=== PATIENT | female | born 1955 | race Caucasian/White ===

== ENCOUNTER 2020-04-28 11:33 | Observation (INO) | payer MEDICARE ==
[2020-04-28] VITALS (7 sets, daily range): BP systolic 108–140; BP diastolic 54–76; Ht 167.6 cm; Wt 67.7 kg
[~2020-04-28] VITALS: Ht 167.6 cm; Wt 67.7 kg
--- NOTE | ~2020-04-28 | HEMODYNAMI ---
PATIENT:CLIVE MARTINEZ MEDICAL RECORD: [id number] : 51 LOCATION:[facility] D.4 ADMISSION DATE: 04/28/20 Generatedon:04/29/202010:25 Patient name: CLIVE MARTINEZ Patient #: [id number] SSN: [id number] : 1955 Date of study: 04/29/2020 Page: Of Hemodynamic Procedure Report Patient Data Patient Demographics Procedure consent was obtained First Name: CLIVE Gender: Female Last Name: JUAN : 1955 Patient #: [id number] Age: 65 year(s) Race: SSN: [id number] Additional ID: [id number] Contact details [address]: [address] [place] [address] State: [place] City: [place] Zip code: [address] Past Medical History Allergies Allergen Reaction Date Comments Reported Other allergy 04/29/2020 PCN Admission Admission Data Admission Date: 04/28/2020 Admission Time: 16:21 Arrival Date: 04/29/2020 Arrival Time: 0:00 Admit Source: Emergency Insurance Payor: Medicare department [facility] #: [id number] Room #: D.2114 Height (in.): 66 BSA: 1.77 (m2) Height (cm.): 167.64 BMI: 24.1 (kg/m2) Weight (lbs.): 149.3 Weight (kg.): 67.72 Lab Results Lab Result Date: 04/29/2020 Lab Result Time: 0:00 Biochemistry Name Units Result Min Max BUN mg/dl 17 --(---*)-- 7 18 CK-MB ng/ml 1 --(-*--)-- 0 3.6 Creatinine mg/dl 1 --(--*-)-- 0.6 1.3 eGFR ml/min 58 *-(----)-- 90 120 NONAFRICAN Troponin l ng/ml 0.017 --(-*--)-- 0 0.06 CBC Name Units Result Min Max Hematocrit % 41.3 -*(----)-- 42 54 Hemoglobin g/dl 13.4 -*(----)-- 13.5 17.5 Procedure Procedure Types Cath Procedure Diagnostic Procedure [facility] w/Coronaries Procedure Description Procedure Date Procedure Date: 04/29/2020 Procedure Start Time: 10:12 Procedure End Time: 10:19 Procedure Staff Name Function Jarrett Herrera MD Performing Physician Ananya Collier RT Monitor Carmen Reno RT Scrub Beau Lawrence RN Nurse Procedure Data Cath Procedure Fluoroscopy Diagnostic fluoroscopy Total fluoroscopy Time: 1 time: 1 min min Diagnostic fluoroscopy Total fluoroscopy dose: 149 dose: 149 mGy mGy Contrast Material Contrast Material Type Amount (ml) Isovue 300 46 Entry Location Entry Primary Successful Side Size Upsize Upsize Entry Closure Succes sful Closure Location (Fr) 1 (Fr) 2 (Fr) Remarks Device Remarks Femoral Right 5 Fr Exoseal artery Estimated blood loss: 5 ml Diagnostic catheters Device Type Used For End Catheter Placement MULTIPACK JL 4.0 5Fr Left Coronary catheter Angiography MULTIPACK 3DRC 5Fr Right Coronary catheter Angiography MULTIPACK Pigtail 5 Fr LV Angiography catheter Procedure Complications No complications Procedure Medications Medication Administration Route Dosage Oxygen etCO2 Nasal cannula 2 l/min Lidocaine 2% added to field 20 Heparin Flush Bag added to field 2 bags (1000units/500ml NS) 0.9% NaCl I.V. 100 ml/hr Versed I.V. 2 mg Fentanyl I.V. 50 mcg Fentanyl I.V. 50 mcg Versed I.V. 1 mg Versed I.V. 1 mg Hemodynamics Rest BSA: 1.77 (m2) HGB: 13.4 (g/dl) O2 Consumption: Estimated: 160.33 (ml/min) O2 Co nsumption indexed: Estimated:90.58 (ml/min/m) Heart Rate: 64 (bpm) Pressure Samples Time Site Value (mmHg) Purpose Heart Use Rate(bpm) 10:16 LV 102/8,16 Snapshot 65 Gradients Valve Time Site Site Mean SEP/DFP Peak To Heart Use 1 2 (mmHg) (sec/min) Peak Rate (mmHg) (bpm) Aortic 10:17 LV AO 65 Snapshots Pre Cath Intra NCS Post Cath Vital Signs Time Heart Resp SPO2 etCO2 NIBP (mmHg) Rhythm Pain Sedation Rate (ipm) (%) (mmHg) Status Level (bpm) 9:59:49 60 14 99 0 128/79(109) NSR 0 (11) 10(A) , No pain 10:03:57 67 11 96 36 119/82(92) NSR 0 (11) 10(A) , No pain 10:08:06 55 14 96 39.1 115/70(82) NSR 0 (11) 10(A) , No pain 10:12:19 56 12 96 39.1 115/65(87) NSR 0 (11) 9(A) , No pain 10:16:31 65 14 96 38.3 118/66(74) NSR 0 (11) 9(A) , No pain 10:22:57 67 21 97 40.6 119/72(89) NSR 0 (11) 10(A) , No pain Medications Time Medication Route Dose Verified Delivered Reason Notes Eff ectiveness by by 10:03:32 Oxygen etCO2 2 Jarrett Buffie used for Nasal l/min [facility] Raul Lawrence director information security cannula 10:03:41 Lidocaine 2% added 20ml Jarrett Jarrett for local to vial [facility] anesthetic field MD KEYES 10:04:00 Heparin Flush added 2 Jarrett Jarrett used for Bag to bags [facility] procedure (1000units/500ml field MD KEYES NS) 10:04:09 0.9% NaCl I.V. 100 Jarrett Buffie Per ml/hr St Raul Lawrence RN physician 10:08:04 Versed I.V. 2 mg Jarrett Buffie for [facility] Raul Lawrence RN sedation 10:08:10 Fentanyl I.V. 50 [address] for mcg [address] Raul Lawrence RN sedation 10:13:13 Versed I.V. 1 mg Jarrett Buffie for SharonRaul Lawrence RN sedation 10:13:39 Fentanyl I.V. 50 Jarrett Buffie for mcg SharonRaul Lawrence RN sedation 10:17:44 Versed I.V. 1 mg Jarrett Buffie for SharonRaul Lawrence RN sedation Procedure Log Time Note 9:28:50 Informed consent obtained and on chart 9:29:10 Diagnostic Cath Status : Urgent 9:29:26 Arrival Date: 04/29/2020 12:00:00 AM 9:29:28 Admit Source: Emergency department 9:29:32 Insurance Payor : Medicare 9:29:59 Patient Height : 66 inches 9:30:04 Patient Weight : 149.3 lbs 9:30:15 ACC Patient presents with Non-STEMI CCS Anginal Class 2--Slight limitation of ordinary activity. 9:30:19 Procedure Status Urgent Heart Cath (IP). 9:30:21 Time tracking: Regular hours (M-F 7:00 - 5:00) 9:30:26 Plan of Care:Hemodynamics will remain stable., Cardiac rhythm will remain stable., Comfort level will be maintained., Respiratory function will remain adequate., Patient/ family verbilizes understanding of procedure., Procedure tolerated without complication., Recovers from procedure without complications.. 9:30:29 Pre-procedure instructions explained to patient. 9:30:30 Pre-op teaching completed and patient verbalized understanding. 9:30:31 Family unavailable. 9:30:33 Patient NPO since Midnight. 9:30:44 Patient allergic to Other allergyPCN 9:43:15 Lab Result : Troponin l 0.017 ng/ml 9:43:15 Lab Result : Hemoglobin 13.4 g/dl 9:43:15 Lab Result : eGFR NONAFRICAN 58 ml/min 9:43:15 Lab Result : BUN 17 mg/dl 9:43:15 Lab Result : Creatinine 1 mg/dl 9:43:15 Lab Result : CK-MB 1 ng/ml 9:43:15 Lab Result : Hematocrit 41.3 % 9:45:10 H&P Date Dictated: 04/28/2020 Within 30 days and on chart.. 9:45:20 Lab results completed and on chart. 9:45:24 Stress Test: no; N/A ? 9:45:26 Alarms reviewed by R. N. 9:45:27 Sharps counted by scrub and verified by R.N. 9:46:50 Beau Lawrence RN sent for patient. Start room use. 9:58:30 Patient received from Med II to CCL 1 Alert and oriented. Tansferred to table in Supine position. 9:58:31 Warm blankets applied, and giorgio hugger turned on for patient comfort. 9:58:32 Correct patient and procedure confirmed by team. 9:58:32 ECG and BP/O2 sat monitors applied to patient. 9:58:33 Full Disclosure recording started 9:58:37 Vital chart was started 9:58:39 Baseline sample Acquired. 9:58:42 Rhythm: sinus rhythm 10:00:33 Attempt to call spouse Melvin made, left message due to no answer. 10:03:32 Oxygen 2 l/min etCO2 Nasal cannula was administered by Beau Lawrence RN; used for procedure; Verbal order read back and verified. 10:03:41 Lidocaine 2% 20ml vial added to field was administered by Jarrett Herrera MD; for local anesthetic; Verbal order read back and verified. 10:04:00 Heparin Flush Bag (1000units/500ml NS) 2 bags added to field was administered by Jarrett Herrera MD; used for procedure; Verbal order read back and verified. 10:04:09 0.9% NaCl 100 ml/hr I.V. was administered by Baeu Lawrence RN; Per physician; Verbal order read back and verified. 10:04:21 Baseline sample Acquired. 10:04:32 Is the patient allergic to Iodine/contrast media? No. 10:04:33 Was the patient premedicated? Yes 10:04:34 Is patient on blood thinner?No 10:04:35 Patient diabetic? No. 10:04:38 Previous problem with sedation/anesthesia? No ? 10:04:39 Snore? Yes 10:04:41 Sleep apnea? No 10:04:41 Deviated septum? No 10:04:42 Opens mouth fully? Yes 10:04:43 Sticks out tongue? Yes 10:04:44 Airway obstruction? No ? 10:04:48 Dentures? No ? 10:04:54 Pre procedure: right dorsailis pedis pulse 2+ Normal; easily identifiable; not easily obliterated 10:04:56 Pre procedure: left dorsailis pedis pulse 2+ Normal; easily identifiable; not easily obliterated 10:04:58 Patient pain scale 0/10 ?. 10:05:05 IV patent on arrival in right wrist with 0.9% NaCl at [facility]. 10:05:11 Right groin area was prepped with chlora-prep and draped in sterile fashion 10:06:02 Physician arrived 10:06:02 --------ALL STOP TIME OUT------ 10:06:03 Final Timeout: patient, procedure, and site verified with staff and physician. All members of the team are in agreement. 10:06:04 Right groin site verified by team. 10:06:07 Fire Safety Assessment: A--An alcohol-based skin anteseptic being used preoperatively., C--Open oxygen or nitrous oxide is being used., D--An ESU, laser, or fiber-optic light is being used. 10:06:10 Physical assessment completed. ASA score P 2 - A patient with mild systemic disease as per Jarrett Herrera MD. 10:06:40 3a) 45-59 Moderately reduced kidney function. 10:07:34 Maximum allowable contrast dose (3.7 X eGFR X 0.75)160 ml. 10:07:38 Sedation plan: IV Moderate Sedation Medication:Versed, Fentanyl 10:07:49 Use device set Femoral Dx 10:07:53 ACIST Syringe (40381) opened to sterile field. 10:07:54 Bag Decanter (2002S) opened to sterile field. 10:07:54 Medline Cath Pack ([id number]) opened to sterile field. 10:07:55 ACIST Hand Control (41271) opened to sterile field. 10:07:56 ACIST Manifold (51226) opened to sterile field. 10:07:57 DIAGNOSTIC Multipack 5Fr catheter set (QJ2978) opened to sterile field. 10:07:57 Tegaderm 4 x 4 (1626W) opened to sterile field. 10:07:58 SHEATH 5FR [place] (BVK675) opened to sterile field. 10:07:59 EMERALD Guide Wire (157-523) opened to sterile field. 10:08:04 Versed 2 mg I.V. was administered by Beau Lawrence RN; for sedation; Verbal order read back and verified. 10:08:10 Fentanyl 50 mcg I.V. was administered by Beau Lawrence RN; for sedation; Verbal order read back and verified. 10:12:25 Procedure started. 10:12:35 Local anesthetic to right femoral artery with Lidocaine 2% by Jarrett Herrera MD.INITIAL ACCESS ONLY 10:12:44 A 5 Fr sheath was inserted into the Right Femoral artery 10:13:13 Versed 1 mg I.V. was administered by Beau Lawrence RN; for sedation; Verbal order read back and verified. 10:13:37 A MULTIPACK JL 4.0 5Fr catheter was advanced over the wire and used for Left Coronary Angiography. 10:13:39 Fentanyl 50 mcg I.V. was administered by Beau Lawrence RN; for sedation; Verbal order read back and verified. 10:13:46 LCA angiography performed. 10:13:48 Injector settings: Ml/sec: 3, Volume: 6, 10:14:22 Catheter removed. 10:14:28 A MULTIPACK 3DRC 5Fr catheter was advanced over the wire and used for Right Coronary Angiography. 10:15:25 RCA angiography performed. 10:15:28 Injector settings: Ml/sec: 3, Volume: 6, 10:15:35 Zero performed for pressure channel P1 10:15:56 Catheter removed. 10:15:59 A MULTIPACK Pigtail 5 Fr catheter was advanced over the wire and used for LV Angiography. 10:16:46 LV hemodynamics recorded. 10:17:11 LV gram done using AMOR 10:17:14 Injector settings: Ml/sec: 5, Volume: 15, 10:17:17 EF : 55 % 10:17:20 Catheter removed. 10:17:22 EXOSEAL 5Fr (EX500) opened to sterile field. 10:17:34 Sheath removed intact; hemostasis achieved with Exoseal to the Right Femoral artery. 10:17:35 Procedure ended.(Physican Out) 10:17:44 Versed 1 mg I.V. was administered by Beau Lawrence RN; for sedation; Verbal order read back and verified. 10:17:53 Fluoroscopy time 01.00 minutes. 10:17:57 Fluoroscopy dose: 149 mGy 10:17:57 Flurop Dose total: 149 10:18:02 Dose Area Product 7108 mGy/cm. 10:18:05 Contrast amount:Isovue 300 46ml. 10:18:08 Maximum allowable dose exceeded? No. 10:18:09 Sharps counted by scrub and verified by R.N. 10:18:10 Insertion/operative site no bleeding no hematoma. 10:18:12 Post-op/insertion site Right Femoral artery dressed using a 4 x 4 and Tegaderm. 10:18:13 Post Procedure Pulses reassessed and unchanged 10:18:16 Post procedure rhythm: unchanged. 10:18:18 Estimated blood loss: 5 ml 10:18:22 Post procedure instruction explained to patient.Patient verbalizes understanding. 10:18:22 Patient needs reinforcement of post procedure teaching. 10:18:49 Procedure and supply charges have been captured, reviewed, submitted and are correct. 10:18:54 Procedure Complication : No complications 10:18:56 Vital chart was stopped 10:18:58 [facility] Findings: mild to moderate CAD (<70%) 10:19:01 Operative report dictated upon procedure completion. 10:19:01 See physician's report for complete and final results. 10:19:04 Report given to [facility]. 10:19:07 Patient transfered to [facility] with Stretcher. 10:19:10 Procedure ended. 10:19:10 Full Disclosure recording stopped 10:19:15 End room use (Document Last) Device Usage Item Name Manufacture Quantity Catalog Hospital Part Current Minimal L ot# / Number Charge Number Stock Stock Serial# Code ACIST Acist 1 64962 422674 806557 [id number] 20 Syringe Medical (38815) Systems Inc Bag Microtek 1 2001S 144553 82558 595834 5 Decanter Medical Inc. () Medline Medline 1 [id number] 325007 94046 322850 5 Cath Pack ([id number]) ACIST Hand Acist 1 06419 438010 561596 815602 5 Control Medical (00742) Systems Inc ACIST Acist 1 73221 936705 916986 234158 5 Manifold Medical (71007) Systems Inc DIAGNOSTIC Cardinal 1 WC0036 233396 43537 575392 30 Multipack Health 5Fr catheter set (OG1201) Tegaderm 4 3M 1 1626W 011965 123310 485000 5 x 4 (1626W) SHEATH 5FR Terumo 1 [id number] 852246 058658 579247 5 [place] (LWM490) EMERALD Cardinal 1 502-455 025019 618784 856761 5 Guide Wire Health (502-206) MULTIPACK Cardinal 1 920809 5 JL 4.0 5Fr Health catheter MULTIPACK Cardinal 1 252623 5 3DRC 5Fr Health catheter MULTIPACK Cardinal 1 462349 5 Pigtail 5 Health Fr catheter EXOSEAL 5Fr Cardinal 1 EX500 396283 637666 070304 10 (EX500) Health Signature Audit [place] Stage Time Signature Unsigned Intra-Procedure 04/29/2020 Ananya Collier 10:20:58 AM RT(R) Intra-Procedure 04/29/2020 Beau Lawrence RN 10:21:20 AM Intra-Procedure 04/29/2020 Jarrett Soto 10:25:19 AM Raul KEYES [address] [place] [address]
--- NOTE | ~2020-04-28 | EC ---
PATIENT:CLIVE MARTINEZ DATE OF SERVICE: 04/28/20 SEX: F MEDICAL RECORD: [id number] DATE OF : [birth year] LOCATION:D.M2 D.211 AGE OF PATIENT: 65 ADMISSION DATE: 04/28/20 REFERRING PHYSICIAN: INTERPRETING PHYSICIAN: APOLLO LANE MD ECHOCARDIOGRAM REPORT ECHO CHARGES 4 ECHO COMPLETE Date: 04/29/20 CLINICAL DIAGNOSIS: Chest Pain , Shortness of Breath ECHOCARDIOGRAPHIC MEASUREMENTS (adult normal given) AC root (d.<3.7cm) 3.0 cm LV Septum d (<1.2 cm> 1.0 cm Valve Excursion cm LV Septum (systole) 1.0 cm Left Atria (s.<4.0cm> 3.0 cm LVPW d(<1.2cm) 0.9 cm RV (d.<2.3cm) 3.5 cm LVPW (sytole) 1.2 cm LV diastole(<5.6CM) 4.0 cm MV E-F(>70mm/sec) cm LV systole 2.9 cm LVOT Diameter 2.0 cm MV exc.(>10mm) cm Est.ejection fraction (50-75%) 55 % DOPPLER: LVIT cm/sec A 68 cm/sec E 88 cm/sec LA cm/sec RVSP 30 mmHg LVOT 115 cm/sec AOP1/2T m/s Asc. Ao 152 cm/sec RVOT cm/sec RA cm/sec PA cm/sec AV Gradient Peak 9.2 mmHg AV Mean 4.7 mmHg AV Area 2.2 cm MV Gradient Peak 3.4 mmHg MV Mean 1.4 mmHg MV Area cm COMMENTS: Testing Analyst: Property Claims Manager: Elke Xie TAPE# pacs Pericardial Effusion N DATE OF SERVICE: Adequate 2D, color flow imaging, spectral Doppler and M-Mode No LVH. LV internal dimension is normal. Wall motion is normal. EF is greater than or equal to 55%. Aortic valve is tricuspid. No evidence of stenosis by Doppler interrogation. Left atrium is normal. Mitral valve shows no prolapse. Trivial MR. Right-sided chambers are grossly normal. Trivial TR. TRANSINT:[id number] Voice Confirmation ID: [id number] DOCUMENT ID: [id number] ECHOCARDIOGRAM REPORT [id number] JUANCLIVE DELGADILLO APOLLO LANE MD CC: [id number] DICTATION DATE: 04/30/2036 PHOTOGRAPHIC PROCESS WORKER: 04/30/20 1657 DIS IN 04/29/20 [facility] [address] [facility], [facility]
[2020-04-28 12:39] LABS: APTT 24.7 SECONDS (22.8-39.4); INR 0.93 (0.85-1.17); PROTIME 12.4 SECONDS (11.6-15.0)
[2020-04-28 12:41] LABS: CALC OSMOLALITY 279 mosm/kg (275-300); CALCIUM 9.4 mg/dL (8.5-10.1); CARBON DIOXIDE 26.5 mmol/L (21.0-32.0); CHLORIDE - SERUM 104 mmol/L (98-107); CREATININE - SERUM 1.1 mg/dL (0.6-1.3); GLUCOSE 93 mg/dL (74-106); POTASSIUM - SERUM 3.8 mmol/L (3.5-5.1); SODIUM 139 mmol/L (136-145); UREA NITROGEN 19 mg/dL (7-18); eGFR NON AFRICAN AMERICAN 52 mL/min (90-120)
[2020-04-28 12:49] LABS: BASOPHILS 0.4 % (0-2); EOSINOPHILS 0.5 % (0-7); HEMATOCRIT 44.3 % (36.0-48.0); HEMOGLOBIN 14.7 g/dL (12-16); IMMATURE GRANULOCYTES 0.4 % (0-5); LYMPHOCYTES 33.8 % (15-50); MCHC 33.2 g/dL (31.0-37.0); MCV 96.3 fL (80.0-100.0); MEAN PLATELET VOLUME 10.5 fL (7.4-10.4); MONOCYTES 5.7 % (2-11); NEUTROPHILS 59.2 % (40-80); PLATELET COUNT 205 10x3/uL (130-400); RDW 12.5 % (11.5-14.5); WBC 7.8 10x3/uL (4.8-10.8)
[2020-04-28 12:57] LABS: ALBUMIN 3.9 g/dL (3.4-5.0); ALKALINE PHOSPHATASE 67 U/L (30-120); ALT (SGPT) 28 U/L (10-68); BILIRUBIN - TOTAL 0.45 mg/dL (0.2-1.3); CREATINE KINASE 90 UL (21-215); MAGNESIUM - SERUM 2.2 mg/dL (1.8-2.4); PROTEIN - SERUM 7.8 g/dL (6.4-8.2); TROPONIN-I < 0.017 ng/mL (0.000-0.060)
[2020-04-28 15:17] LABS: CHOL - HDL RATIO 2.6 ratio (2.3-4.1); LDL-HDL RATIO 1.5 ratio (1.5-3.5)
--- NOTE | 2020-04-28 17:48 | NUR ---
t awake and oriented, ambulates self unassisted. states no pain at this time. cl in reach, srx2.
--- NOTE | 2020-04-28 18:15 | NUR ---
RECEIVED PT FROM ER. PT IS AAO AND UP AD FEROZ. VSS AND WNL. CONSENTS FOR PROCEDURE SIGNED. TELEMETRY APPLIED. PIV SALINE LOCKED. QUICKSTART, HISTORY, MED REQ, ASSESSMENT COMPLETE. PT DENIES ANY NEEDS AT THIS TIME. WILL CTM.
--- NOTE | 2020-04-28 19:30 | NUR ---
RECEIVED BEDSIDE RREPORT. PATIENT IS ALERT AND ORIENTED, RESTING COMFORTABLY IN BED. RESPIRATIONS ARE EVEN AND UNLABORED. NO S/S OF DISTRESS. NO C/O PAIN. CALLLIGHT WITHIN REACH. WILL CPOC.
[2020-04-28 23:34] LABS: CKMB 0.8 U/L (0.0-3.6); CREATINE KINASE 61 UL (21-215)
[2020-04-28 23:36] LABS: TROPONIN-I < 0.017 ng/mL (0.000-0.060)
[2020-04-29 02:12] VITALS: BP 108/67
[2020-04-29 06:14] VITALS: BP 114/72
[2020-04-29 07:00] VITALS: BP 130/80
[2020-04-29 07:04] LABS: BASOPHILS 0.3 % (0-2); EOSINOPHILS 1.2 % (0-7); HEMATOCRIT 41.3 % (36.0-48.0); HEMOGLOBIN 13.4 g/dL (12-16); IMMATURE GRANULOCYTES 0.3 % (0-5); LYMPHOCYTES 39.7 % (15-50); MCH 31.2 pg (26.0-34.0); MCHC 32.4 g/dL (31.0-37.0); MEAN PLATELET VOLUME 10.2 fL (7.4-10.4); MONOCYTES 6.7 % (2-11); NEUTROPHILS 51.8 % (40-80); PLATELET COUNT 210 10x3/uL (130-400); RDW 12.5 % (11.5-14.5)
[2020-04-29 07:07] LABS: WBC 5.8 10x3/uL (4.8-10.8)
[2020-04-29 07:44] LABS: ALBUMIN 3.2 g/dL (3.4-5.0); ALKALINE PHOSPHATASE 56 U/L (30-120); BILIRUBIN - TOTAL 0.48 mg/dL (0.2-1.3); CALC OSMOLALITY 279 mosm/kg (275-300); CALCIUM 8.9 mg/dL (8.5-10.1); CHLORIDE - SERUM 105 mmol/L (98-107); CREATINE KINASE 56 UL (21-215); GLUCOSE 93 mg/dL (74-106); POTASSIUM - SERUM 4.1 mmol/L (3.5-5.1); PROTEIN - SERUM 6.2 g/dL (6.4-8.2); SODIUM 139 mmol/L (136-145); TROPONIN-I < 0.017 ng/mL (0.000-0.060); UREA NITROGEN 17 mg/dL (7-18); eGFR NON AFRICAN AMERICAN 58 mL/min (90-120)
[2020-04-29 07:46] LABS: ALT (SGPT) 23 U/L (10-68)
[2020-04-29 11:00] VITALS: BP 100/62
--- NOTE | 2020-04-29 14:41 | NUR ---
PT DISCHARGED HOME VIA WHEELCHAIR WITH FAMILY. PIV REMOVED WITH CATHETER TIP FULLY INTACT. PT SIGNED PROPERE DISCHARGE INSTRUCTIONS AND REMOVED ALL VALUABLES FROM THE ROOM. TELEMTRY REMOVED AND RETURNED.
--- NOTE | 2020-04-29 16:18 | MORECARE ---
CASE MANAGEMENT DISCHARGE SUMMARY PATIENT: CLIVE OROZCO UNIT: [id number] ADM DATE: 04/28/20 AGE: 65 : 53 SEX: F ROOM/BED: D.5477 AUTHOR: ROB ALDANA PHYSICIAN: REFERRING PHYSICIAN: MEÑO ARMENDARIZ MD DATE OF SERVICE: 04/29/20 Discharge Plan Patient Name: CLIVE OROZCO [facility] [facility] 1955 Planned Disposition: Home Anticipated Discharge Date: 04/29/20 Discharge Date: 04/29/2020 Expected LOS: 1 Initial Reviewer: [email or web address] Initial Review Date: 04/28/2020 Generated: 04/29/20 5:17 pm Coverage Notice Reviewer: [email or web address] Lan Mayen Notice Issued Date-Time: 04/29/2020 8:40 Notice Type: Medicare Outpatient Observation Notice Notice Delivered To: Patient Relationship to Patient: Self Physiological Chemist Name: Clive Orozco Delivery Method: MAIL - Mail Bing Days: Prior Verbal Notification: Recipient Understood Notice: Yes Recipient Signature: Yes Med Rec Note Co-signed by Attending: Coverage Notice Comment: DIALLO signed/delivered to patient. Original to chart. Patient Name: CLIVE OROZCO Page [id number] at 1618 All edits/amendments must be made on the electronic document DICTATION DATE: 04/29/201617 GEOGRAPHY FACULTY MEMBER: DEJON 04/29/20 1618 RPT#: [id number] DC DATE:04/29/20 STATUS: DIS IN [address] [address] [place] [address] END OF REPORT
--- NOTE | 2020-04-29 16:43 | MORECARE ---
CASE MANAGEMENT DISCHARGE SUMMARY PATIENT: CLIVE OROZCO UNIT: [id number] ADM DATE: 04/28/20 AGE: 65 : 53 SEX: F ROOM/BED: D.1443 AUTHOR: ROB ALDANA PHYSICIAN: REFERRING PHYSICIAN: MEÑO ARMENDARIZ MD DATE OF SERVICE: 04/29/20 Discharge Plan Patient Name: CLIVE OROZCO [facility] [facility] 1955 Planned Disposition: Home Anticipated Discharge Date: 04/29/20 Discharge Date: 04/29/2020 Expected LOS: 1 Initial Reviewer: [email or web address] Initial Review Date: 04/28/2020 Generated: 04/29/20 5:43 pm Coverage Notice Reviewer: [email or web address] Lan Mayen Notice Issued Date-Time: 04/29/2020 8:40 Notice Type: Medicare Outpatient Observation Notice Notice Delivered To: Patient Relationship to Patient: Self Director Of Dementia Operations Name: Clive Orozco Delivery Method: MAIL - Mail Bing Days: Prior Verbal Notification: Recipient Understood Notice: Yes Recipient Signature: Yes Med Rec Note Co-signed by Attending: Coverage Notice Comment: YOEL signed/delivered to patient. Original to chart. Last DP export: 04/29/20 3:18 p Patient Name: CLIVE OROZCO Page [phone] at 1643 All edits/amendments must be made on the electronic document DICTATION DATE: 04/29/20 164 ADVERTISING STRATEGIST: DEJON 04/29/20 164 RPT#: [id number] DC DATE:04/29/20 STATUS: DIS IN [facility] [address] [place] [address] END OF REPORT
--- NOTE | 2020-04-30 16:55 | OP ---
PATIENT NAME: CLIVE MARTINEZ MEDICAL RECORD: [id number] :51 LOCATION:D.M2 D.2114 ADMISSION DATE:04/28/20 SURGEON: APOLLO LANE MD DATE OF OPERATION: 04/29/2020 PROCEDURE: Left heart catheterization, selective coronary angiography, right femoral artery approach. CATHETERS: A 5-Khmer sheath, 5/4 left and right Clif, 5/4 pig. The procedure was well tolerated. The patient returned to the conrad. Sheath removed. ExoSeal device placed. FINDINGS: Left ventriculography in 30-degree AMOR view: Normal wall motion and normal systolic function. CORONARY ANATOMY: LEFT MAIN: Left main is free of disease. LAD: Free of disease in the diagonal system. CIRCUMFLEX: Free of disease in the marginal system. RIGHT CORONARY ARTERY: Dominant artery, gives rise to PDA, free of disease. IMPRESSION: Normal left ventricular systolic function, normal coronary anatomy. TRANSINT:[id number] Voice Confirmation ID: [id number] DOCUMENT ID: [id number] APOLLO LANE MD at 1655 CC: [id number] DICTATION DATE: 04/29/20 1028 MEAT HANGER: 04/29/20 1544 DIS IN 04/29/20 [facility] [address] [place] [address]
== END 2020-04-29 14:42 | disposition home or self-care (01) ==
LOC: D.ER 11:33 → D.M2 16:21 → OBSVTIME 17:00 → D.M2 04-29 14:42
PROVIDERS: Emergency Medicine; Internal Medicine Interventional Cardiology; ADMIT Family Medicine Adult Medicine; ATTEND Family Medicine Adult Medicine
DX: R07.9 Chest pain, unspecified (principal); E78.5 Hyperlipidemia, unspecified